=== PATIENT | female | born 1990 | race Two or more races ===

== ENCOUNTER 2019-09-27 02:17 | Emergency (ER) | payer MEDICAID ==
[~2019-09-27] VITALS: Ht 162.6 cm; Wt 83.0 kg
[2019-09-27 02:20] VITALS: BP 116/61
[2019-09-27 04:48] LABS: Urine Bacteria MANY /hpf (None Seen); Urine Blood 1+ /uL (Negative); Urine Specific Gravity 1.008 (1.001-1.035); Urine WBC 200 /hpf (0 - 5); Urine WBC Clumps PRESENT /hpf (None Seen)
== END 2019-09-27 05:04 | disposition home or self-care (01) ==
LOC: ER 02:19
DX: N39.0 Urinary tract infection, site not specified (principal); Z32.02 Encounter for pregnancy test, result negative
CPT/HCPCS: 81001; 81025; 87086; 87088; 87186

== ENCOUNTER 2022-04-08 16:19 | Emergency (ER) | payer MEDICAID ==
[~2022-04-08] VITALS: Ht 162.6 cm; Wt 74.5 kg
[2022-04-08 17:00] LABS: Urine Bacteria FEW /hpf (None Seen); Urine Blood 2+ /uL (Negative); Urine Specific Gravity 1.021 (1.001-1.035); Urine WBC 808 /hpf (0 - 5)
[2022-04-08] MEDS ORDERED: NITR-87 PO (17:34)
[2022-04-08 17:51] VITALS: BP 113/74
== END 2022-04-08 17:52 | disposition home or self-care (01) ==
LOC: ER 16:20
DX: N39.0 Urinary tract infection, site not specified (principal); Z79.899 Other long term (current) drug therapy
CPT/HCPCS: 81001